=== PATIENT | male | born 1980 | race American Indian/Alaskan Native ===

== ENCOUNTER 2019-07-11 12:53 | Emergency (ER) | payer OTHER ==
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
[2019-07-11 13:49] VITALS: BP 164/73
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
[2019-07-11] MEDS ORDERED: IBUPROFEN 800 MG TAB PO ONE (15:38)
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
== END 2019-07-11 16:32 | disposition home or self-care (01) ==
LOC: ED 12:53
DX: S39.012A Strain of muscle, fascia and tendon of lower back, initial encounter (principal); S66.912A Strain of unspecified muscle, fascia and tendon at wrist and hand level, left hand, initial encounter; F17.200 Nicotine dependence, unspecified, uncomplicated; Z79.1 Long term (current) use of non-steroidal anti-inflammatories (NSAID); Z79.899 Other long term (current) drug therapy; V49.49XA Driver injured in collision with other motor vehicles in traffic accident, initial encounter; Y93.89 Activity, other specified; Y92.410 Unspecified street and highway as the place of occurrence of the external cause; Y99.8 Other external cause status
CPT/HCPCS: 72100